=== PATIENT | female | born 1975 | race African-American/Black ===

== ENCOUNTER 2017-04-06 17:50 | Inpatient (IN) | payer OTHER ==
[~2017-04-06] VITALS: Ht 170.2 cm; Wt 163.3 kg
--- NOTE | ~2017-04-06 | EKG ---
[address] [place] [place] [address] ELECTROCARDIOGRAM REPORT Name: JUSTINA REAL Room #: 422-P ADM IN M.R.#: [id number] Admission: 04/06/17 Attend Phys: Rafael Hodgson MD Discharge: Date of : 77 Report #: [id number] [facility] RE[facility] FOR: //name// [facility] Test Date: 2017-04-06 Test Time: 18:04:00 Pat Name: JUSTINA REAL Department: Room: [facility] Gender: F Mailing Machine Operator: Moraima DINERO : 1975 Requested By: Nicole Gutierrez Order Number: [id number] MD: Isac Maurer Measurements Intervals [place] Rate: 67 P: 61 NV: 173 QRS: 27 QRSD: 81 T: 126 QT: 428 QTc: 452 Interpretive Statements Sinus rhythm Probable left atrial enlargement Left ventricular hypertrophy Borderline abnrm T, anterolateral leads No previous ECG available for comparison Electronically Signed On 04-07-2017 9:02:10 CDT by Isac Maurer [email or web address] <ELECTRONICALLY SIGNED> By: Isac Maurer MD, [facility] 04/07/17901 03 03 Isac Maurer MD, [facility] /EPI
--- NOTE | ~2017-04-06 | HC ---
[facility] [address] [address] CONSULTATION Name: JUSTINA REAL Room #: 422-P [facility] IN M.R.#: [id number] Admission: 04/06/17 Attend Phys: Rafael Hodgson MD Discharge: Date of : 77 Report #: [id number] THIS REPORT FOR: //name// CC: [facility] physician/PCP Rafael Hodgson REASON FOR CONSULTATION: Abnormal EKG. HISTORY OF PRESENT ILLNESS: The patient is a 41-year-old woman with longstanding hypertension and known heart murmur for which she has been evaluated at [facility] in [place]. 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 For the past several months, she has had intermittent left arm and leg numbness, this typically occurs when she ambulates and if she sits down, this numbness will corky. She denies chest heaviness or pressure. She has had longstanding systolic murmur that has been evaluated in [place]. No specific therapy has been rendered other than continued aggressive blood pressure control. No surgical intervention has been discussed. Similarly, this has not created symptoms including chest pain, shortness of breath, heart failure symptoms, palpitations, near syncope or syncope. ALLERGIES: She is allergic to BUPROPION. MEDICATIONS: Include lisinopril, clonidine 0.1 mg twice daily, hydrochlorothiazide 25 mg daily, Protonix 40 mg daily. PAST MEDICAL HISTORY: Notable for hypertension and reflux disease. SOCIAL HISTORY: She is nonsmoker, nondrinker. FAMILY HISTORY: Unremarkable for premature coronary artery disease. There is a history of hypertension. REVIEW OF SYSTEMS: All systems negative except as that noted above. PHYSICAL EXAMINATION: GENERAL: A pleasant woman in no distress. VITAL SIGNS: Blood pressure is 140/70, heart rate is 75 and regular. She is afebrile, 5 feet 7 inches tall and pounds. HEENT: There are neither xanthelasma, subcutaneous xanthomata, oral mucosa or digital cyanosis or kyphoscoliosis present. CHEST: Clear to auscultation and percussion. CARDIOVASCULAR: Regular rate and rhythm with normal S1, S2. There is a 2/6 systolic ejection murmur at the base. ABDOMEN: Soft and nontender. EXTREMITIES: Without cyanosis, clubbing or edema. Radial pulses are 2+. NEUROLOGIC: She is alert with a nonfocal exam. [facility] [address] [address] CONSULTATION Name: JUSTINA REAL Room #: 422-P [facility] IN M.R.#: [id number] Admission: 04/06/17 Attend Phys: Rafael Hodgson MD Discharge: Date of : 77 Report #: [id number] LABORATORY DATA: Sodium is 139, potassium 3.8, creatinine 1.0. Troponin 0. White count 7.0, hemoglobin 11, hematocrit 36, platelet count 216. Chest x-ray demonstrates mild bibasilar atelectasis. CAT scan, nothing for acute hemorrhage or infarction. EKG, sinus rhythm with LVH with repolarization abnormality. IMPRESSION: 1. Intermittent left arm and leg numbness, this sounds like a peripheral neuropathy. 2. Hypertension. 3. Left ventricular hypertrophy with strain. 4. Systolic murmur, asymptomatic. RECOMMENDATIONS: 1. Agree with neurologic evaluation. 2. Continued aggressive risk factor modification and blood pressure control. 3. Her murmur has been extensively evaluated at [facility] in [place]. I would recommend followup with her primary care doctor upon return. She reports not staying in the [facility] and has plans on returning to the [place]. At this point, no additional cardiovascular testing is needed. We will be available as issues or problems arise. Thank you for asking me to participate in her care. <ELECTRONICALLY SIGNED> By: Isac Maurer MD, FACC 04/08/17816 9 3 Isac Maurer MD, FACC /nt
--- NOTE | ~2017-04-06 | 2DMMODE ---
[facility] [address] [place] [address] 2 D/M-MODE ECHOCARDIOGRAM Name: JUSTINA REAL Room #: 422-P [facility] IN .R.#: [id number] Admission: 04/06/17 Attend Phys: Rafael Hodgson MD Discharge: Date of : 77 Date of Service: 04/08/17 1444 Report #: [id number] THIS REPORT FOR: //name// APPROVED REPORT Study performed: 04/08/2017 10:35:44 EXAM: Comprehensive 2D, Doppler, and color-flow Echocardiogram Patient Location: Echo lab Room #: [facility] Status: routine BSA: 2.60 BP: 149/94 mmHg Other Information Study Quality: Good Indications CVA/TIA Echo Enhancing Agent Indication: Rule out Shunt Agent(s) / Amount(s) Used: Agitated Saline 6 cc 2D Dimensions RVDd: 39.22 mm LVEF(%): 72.66 (>50%) IVSd: 16.57 (7-11mm) LVOT Diam: 19.89 (18-24mm) LVDd: 45.37 mm PWd: 15.62 (7-11mm) Ascending Ao: 31.86 (22-36mm) LVDs: 26.49 (25-40mm) Aortic Root: 33.98 mm Ochoa's LVEF: 72.66 % Volumes Left Atrial Volume (Systole) Single Plane 4CH: 98.61 mL Single Plane 2CH: 75.92 mL LA ESV Index: 35.00 mL/m2 Aortic Valve AoV Peak Kamar.: 2.89 m/s AO Peak Gr.: 33.29 mmHg AO Mean Gr.: 16.50 mmHg AO V2 Mean: 1.88 m/s AO V2 VTI: 66.[address] [facility] [address] [place] [address] 2 D/M-MODE ECHOCARDIOGRAM Name: JUSTINA REAL Room #: 422-P [facility] IN ..#: [id number] Admission: 04/06/17 Attend Phys: Rafael Hodgson MD Discharge: Date of : 77 Date of Service: 04/08/17 1444 Report #: [id number] Mitral Valve E/A Ratio: 1.1 MV Decel. Time: 277.65 ms MV E Max Kamar.: 1.11 m/s MV A Kamar.: 1.00 m/s MV PHT: 80.52 ms IVRT: 72.66 ms Pulmonary Valve PV Peak Kamar.: 1.27 m/s PV Peak Gr.: 6.46 mmHg Pulmonary Vein P Vein S: 0.48 m/s P Vein A: 0.23 m/s P Vein D: 0.30 m/s P Vein A Dur.: 121.1 msec P Vein S/D Ratio: 1.60 Left Ventricle The left ventricle is normal size. Moderate concentric left ventricular hypertrophy. Left ventricular systolic function is hyperdynamic. Elevated LV gradient with a resting max pressure gradient of 47 mmHg and max pressure gradient with valsalva of 93 mmHg. LVEF is 70%. Grade II - pseudonormal filling dynamics. Right Ventricle Right ventricle is dilated. The right ventricular systolic function is normal. Atria Left atrium is dilated. Injection of bubbles documented no interatrial shunt. Right atrium is dilated. Aortic Valve Aortic valve leaflets are mildly thickened. Trace aortic regurgitation. Mitral Valve Mild mitral annular calcification. There is no mitral valve regurgitation noted. No evidence of mitral valve stenosis. Tricuspid Valve The tricuspid valve is normal in structure. Trace tricuspid regurgitation. Unable to assess PA pressure. Pulmonic Valve The pulmonary valve is normal in structure. There is no pulmonic [address] [place] [address] 2 D/M-MODE ECHOCARDIOGRAM Name: JUSTINA REAL Room #: 422-P [facility] IN [facility].#: [id number] Admission: 04/06/17 Attend Phys: Rafael Hodgson MD Discharge: Date of : 77 Date of Service: 04/08/17 1444 Report #: [id number] valvular regurgitation. Great Vessels The aortic root is normal in size. The inferior vena cava is not visualized. Pericardium no effusion <Conclusion> The left ventricle is normal size. Moderate concentric left ventricular hypertrophy. Left ventricular systolic function is hyperdynamic. Elevated LV gradient with a resting max pressure gradient of 47 mmHg and max pressure gradient with valsalva of 93 mmHg. LVEF is 70%. Grade II - pseudonormal filling dynamics. Right ventricle is dilated. Left atrium is dilated. Right atrium is dilated. Right atrium is dilated. There is no mitral valve regurgitation noted. no effusion <ELECTRONICALLY SIGNED> By: Hayder Lozoya MD, FACC 04/08/17 1444 1444 1444 Hayder Loozya MD, FACC /INF
[2017-04-06 18:06] VITALS: BP 160/92
[2017-04-06 18:12] LABS: ABSOLUTE NEUTROPHILS 6.6 thou/uL (1.4-8.2); BASOPHILS 0.8 % (0.0-2.0); HEMATOCRIT 37.5 % (37.0-47.0); HEMOGLOBIN 11.8 gm/dL (12.0-15.0); LYMPHOCYTES 25.7 % (24.0-44.0); MCH 21.8 pg (26.0-34.0); MCHC 31.4 g/dL (28.0-37.0); MCV 69.3 fL (80.0-100.0); MONOCYTES 6.4 % (1.0-8.0); PLATELET COUNT 231 thou/uL (150-400); POLYS 64.1 % (36.0-66.0); RBC 5.41 mil/uL (4.20-5.00); RDW 18.9 % (10.5-14.5); WBC 10.3 thou/uL (4.0-11.0)
[2017-04-06 18:13] LABS: MANUAL DIFF NO
[2017-04-06] MEDS ORDERED: CLONIDINE0.1 PO (18:13)
[2017-04-06] MEDS ORDERED: PRINIVIL10 MG PO (18:13)
[2017-04-06] MEDS ORDERED: HYDROCHLOROTHIA25 M2 PO (18:14)
[2017-04-06] MEDS ORDERED: PROTONIX40 M4 PO (18:15)
[2017-04-06 18:17] LABS: POC CA IONIZED 4.7 mg/dL (4.5-5.3); POC HEMOGLOBIN 13.9 g/dL (12.0-15.0); POC POTASSIUM 3.9 mmol/L (3.5-5.1)
[2017-04-06 20:00] VITALS: BP 121/73
[2017-04-06 20:21] VITALS: BP 121/73
[2017-04-06 20:46] VITALS: BP 121/91
[2017-04-07 03:34] VITALS: BP 141/74
[2017-04-07 06:31] LABS: HEMATOCRIT 36.1 % (37.0-47.0); HEMOGLOBIN 11.4 gm/dL (12.0-15.0); MCH 22.1 pg (26.0-34.0); MCHC 31.5 g/dL (28.0-37.0); MCV 70.2 fL (80.0-100.0); RBC 5.14 mil/uL (4.20-5.00); RDW 18.6 % (10.5-14.5)
[2017-04-07 06:53] LABS: ANION GAP 8 mmol/L (7-16); BUN 21 mg/dL (7-18); CALCIUM 8.8 mg/dL (8.5-10.1); CHLORIDE 103 mmol/L (98-107); CHOLESTEROL 162 mg/dL (<200); CO2 28 mmol/L (21-32); GLUCOSE 105 mg/dL (74-106); HDL CHOLESTEROL 66 mg/dL (>40); LDL CHOLESTEROL 84 mg/dL (<100); POTASSIUM 3.8 mmol/L (3.5-5.1); SODIUM 139 mmol/L (136-145); TC:HDL 2.5 Ratio (Not establshd); TRIGLYCERIDE 64 mg/dL (<150); TROPONIN-I < 0.04 ng/mL (<0.04-0.07); VLDL 13 mg/dL (<40)
[2017-04-07 08:05] VITALS: BP 130/88
[2017-04-07 09:40] LABS: FOLIC ACID 10.7 ng/mL (8.6-58.9); TSH 0.877 uIU/mL (0.358-3.740)
[2017-04-08 03:52] VITALS: BP 111/55
[2017-04-08 08:33] VITALS: BP 149/94
[2017-04-08 15:48] VITALS: BP 150/97
[2017-04-08 20:00] VITALS: BP 133/76
[2017-04-09 07:34] VITALS: BP 149/91
[2017-04-09 16:10] VITALS: BP 112/63
[2017-04-09 19:06] VITALS: BP 115/69
[2017-04-10 03:12] VITALS: BP 136/89
[2017-04-10 08:00] VITALS: BP 140/90
[2017-04-10] MEDS ORDERED: ASPIR 8181 MG PO (09:05)
[2017-04-10] MEDS ORDERED: PLAVIX 75 MG TA75 M1 PO (09:05)
[2017-04-10] MEDS ORDERED: TRAMADOL 50 MG50 MG PO (09:05)
[2017-04-10] MEDS ORDERED: LISINOPRIL40 MG PO (09:05)
[2017-04-10 09:45] VITALS: BP 140/90
== END 2017-04-10 12:21 | disposition home or self-care (01) | DRG 65 ==
LOC: ER 17:50 → EROBS 19:08 → 4E 19:08
PROVIDERS: Emergency Medicine; Hospitalist; Nurse Practitioner Family
DX: I63.9 Cerebral infarction, unspecified (principal); Z68.43 Body mass index [BMI] 50.0-59.9, adult; I66.11 Occlusion and stenosis of right anterior cerebral artery; I10 Essential (primary) hypertension; E66.01 Morbid (severe) obesity due to excess calories; K21.9 Gastro-esophageal reflux disease without esophagitis; F14.90 Cocaine use, unspecified, uncomplicated; F12.90 Cannabis use, unspecified, uncomplicated; Z79.899 Other long term (current) drug therapy; Z88.8 Allergy status to other drugs, medicaments and biological substances; Z82.49 Family history of ischemic heart disease and other diseases of the circulatory system; Z87.891 Personal history of nicotine dependence
CPT/HCPCS: 10183